=== PATIENT | female | born 1940 | race Caucasian/White ===

== ENCOUNTER 2017-01-06 17:20 | Emergency (ER) | payer MEDICARE, OTHER ==
--- NOTE | ~2017-01-06 | EKG ---
PATIENT: JAMAL BECKFORD UNIT #: [id number] Ventricular Rate: 59 BPM Atrial Rate: 59 BPM P-R Interval: 188 ms QRS Duration: 82 ms Q-T Interval: 486 ms QTC Calculation(Bezet): 481 ms P [place]: 89 degrees Calculated R [place]: 23 degrees Calculated T [place]: 65 degrees Diagnosis Line: Sinus bradycardia Diagnosis Line: Left ventricular hypertrophy with repolarization Diagnosis Line: abnormality Diagnosis Line: Prolonged QT Diagnosis Line: Abnormal ECG Diagnosis Line: When compared with ECG of 14-JUL-2016 19:24, Diagnosis Line: T wave inversion now evident in Lateral leads Diagnosis Line: Confirmed by ROSS MOONEY MD ([id number]) on Diagnosis Line: 01/14/2017 8:28:19 AM INTERPRETING MD: VINICIO HOUSTON
--- NOTE | ~2017-01-06 | CT71 ---
[facility] A Service of [facility] RADIOLOGY TEXT RESULTS PATIENT: JAMAL BECKFORD LOCATION: SED : 42 UNIT #: [id number] AGE: [address]: Porfirio Canchola MD SEX: F ORDER DR: [id number] [address] [address] [id number] E MR#: [id number] Acc #: [id number] NAME: JAMAL BECKFORD : 1940 SEX: F STUDY DATE/TIME: 01/06/2017 17:53 UNIT: SED ROOM: STUDY DESCRIPTION: CT Head Wo Contrast Attending Physician: Porfirio Canchola M.D. Ordering Physician: Noe Rodriguez M.D. Primary Care Physician: Gulshan Espinal M.D. MEDICAL IMAGING REPORT This report is preliminary unless electronic signature is present. EXAM CT head without contrast dated 01/06/2017. COMPARISON CT head without contrast dated 07/14/2016. HISTORY Dizziness, weakness since this morning. Cough and congestion for [address] exam was performed with one or more of the following radiation dose reduction techniques: automatic exposure control, adjustment of mA and/or kV according to patient size, and iterative reconstruction. FINDINGS CT of the head was obtained without contrast in the axial plane as per the protocol. No acute intracranial hemorrhage, space-occupying mass, mass effect or midline shift is seen. Hypodensities are noted in the bilateral insular cortex, periventricular white matter and in the region of the left posterior limb of the internal capsule and the adjacent left thalamus and basal ganglia. It is new since prior study from last year. It does not have any significant edema, mass effect. It could be better seen on the current study due to difference in slice selection or could be truly new. It is however chronic-appearing. No acute intracranial hemorrhage, hydrocephalus or midline shift is seen. Calcifications are noted in the bilateral globus palatine, particularly in the left and in the vessels of the [facility] [place]. There is nodular mild to moderate mucosal thickening in the right sphenoid sinus causing at least partial obstruction. Minimal frothiness is in the left sphenoid sinus. Mild S-shaped nasal septal deviation is seen. Mastoid air cells are well-aerated. Severe hypertrophic changes of the right and mild on the STS. [facility] A Service of [facility] RADIOLOGY TEXT RESULTS PATIENT: JAMAL BECKFORD [place] [facility] [place] UNIT #: [id number] AGE: [address]: Porfirio Canchola MD SEX: F ORDER DR: left mandibular condyles are noted associated with the temporomandibular joints. Imaged orbits and the ocular structures are unremarkable. IMPRESSION 1. There are some scattered nonspecific hypodensities in the brain, likely relating to prior insults. It is age indeterminant. If there is suspicion for acute stroke, MRI is more sensitive. 2. Next, no acute intracranial hemorrhage, hydrocephalus, midline shift or space-occupying large mass is seen. 3. Mild to moderate nodular mucosal thickening is in the right maxillary antrum causing at least partial obstruction of the right sphenoethmoid recess. Dictated by... Alberto Almanza M.D. THIS IS AN ELECTRONICALLY VERIFIED REPORT Alberto Almanza M.D. at 01/06/2017 10:58 PM CPR/ea TD: 01/06/2017 21:38 JOB #: [id number] MEDICAL IMAGING REPORT Page 1 of 1
--- NOTE | ~2017-01-06 | CR72 ---
[facility] A Service of [facility] RADIOLOGY TEXT RESULTS PATIENT: JAMAL BECKFORD LOCATION: SED : 42 UNIT #: [id number] AGE: [address]: Porfirio Canchola MD SEX: F ORDER DR: [id number] [place] [id number] E MR#: [id number] Acc #: [id number] NAME: JAMAL BECKFORD : 1940 SEX: F STUDY DATE/TIME: 01/06/2017 UNIT: SED ROOM: STUDY DESCRIPTION: CR Chest Single View Portable Attending Physician: Porfirio Canchola M.D. Ordering Physician: Noe Rodriguez M.D. Primary Care Physician: Gulshan Espinal M.D. MEDICAL IMAGING REPORT This report is preliminary unless electronic signature is present. EXAM Chest portable 01/06/2017 17:49 hours HISTORY A 76-year-old woman with dizziness and weakness since this morning. Cough and congestion for 11 months. COMPARISON 07/14/2016 FINDINGS Portable upright chest demonstrates stable cardiomegaly and tortuous aorta. The lungs are well expanded. There is linear perihilar and suprahilar density similar to prior study likely chronic. No definite acute pulmonary density or pleural effusion. No pneumothorax. IMPRESSION 1. Stable cardiomegaly and tortuous aorta. 2. Stable perihilar linear densities likely scarring. No definite acute pulmonary or pleural finding. Dictated by... Henrietta Holcomb M.D. THIS IS AN ELECTRONICALLY VERIFIED REPORT Henrietta Hlocomb M.D. at 01/07/2017 9:33 AM LAWSON/finn TD: 01/06/2017 21:11 JOB #: [id number] [facility] A Service [facility] RADIOLOGY TEXT RESULTS PATIENT: JAMAL BECKFORD LOCATION: SED : 42 UNIT #: [id number] AGE: [address]: Porfirio Canchola MD SEX: F ORDER DR: MEDICAL IMAGING REPORT Page 1 of 1
[~2017-01-06 17:20] MED LIST: ALBUTEROL20 ml INH; AMOXICILLIN PO; ASPIRIN EC81 M1 PO; ASPIRIN PO; ATENOLOL PO; ATIVAN PO; ATIVAN0.5 MG PO; BENZONATATE PO; CALCIUM + VIT1 EACH PO; CIPRO PO; DARVOCET-N 1001 TAB PO; DELTASONE20 MG PO; DIAZEPAM PO; DITROPAN5 MG PO; FLEXERIL PO; FOLIC ACID PO; FOSAMAX70 MG PO; GLUCOSAMINE PO; HYDROMET SYRUP480 ML PO; IMDUR PO; IMDUR-ER30 M1 PO; LEVAQUIN; LEVAQUIN PO; LISINOPRIL10 MG PO; LORAZEPAM1 MG PO; LORTAB 7.51 TAB 7.5/ PO; MACROBID100 M1 PO; MAGIC MOUTHWASH PO; MOBIC PO; MULTI VITAMIN1 EACH PO; NEURONTIN600 MG PO; NORVASC PO; OXYCODONE HCL5 MG PO; PRILOSEC; PRILOSEC PO; PRILOSEC40 MG PO; RITUXAN INJ; TENORMIN50 MG PO; ULTRAM PO; XALATAN OP; XARELTO20 MG PO; ZESTRIL5 MG PO; ZOCOR PO; ZOCOR20 MG PO; ZOFRAN ODT4 MG/UDTAB SL
[2017-01-06 18:39] LABS: POC - CKMB <1.0 ng/mL (0.0-7.9); POC - TROPONIN <0.05 ng/mL (<=0.05)
[2017-01-06 18:42] LABS: BASOPHIL% 0.7 % (0-2.5); EOSINOPHIL# 0.7 X10e3 (0-0.7); EOSINOPHIL% 12.4 % (0.0-7.0); HEMATOCRIT 31.1 % (35.0-45.0); LYMPHOCYTE# 1.5 X10e3 (1.0-3.5); LYMPHOCYTE% 28.3 % (17.0-45.0); MEAN CELL VOLUME 87.5 FL (83-96); MEAN CORPUSCULAR HEMOGLOBIN 28.1 PG (28-34); MEAN CORPUSCULAR HGB CONC 32.2 g/dL (30-36); MONOCYTE# 0.2 X10e3 (0-1.0); MONOCYTE% 2.8 % (3.0-12.0); NEUTROPHIL% 55.8 % (40-75); PLATELET COUNT 316 X10e3 (140-420); RED BLOOD COUNT 3.56 X10e (3.90-5.30); RED CELL DISTRIBUTION WIDTH 16.7 % (11.0-15.5); WHITE BLOOD COUNT 5.5 X10e3 (4.0-10.5)
[2017-01-06 18:43] LABS: DIFF IND NO
[2017-01-06 19:00] LABS: ALBUMIN SERUM 2.8 g/dL (3.5-5.0); BILIRUBIN, DIRECT 0.1 mg/dL (0.0-0.2); BILIRUBIN,INDIRECT 0.2 mg/dL (0.0-0.9); BILIRUBIN,TOTAL 0.3 mg/dL (0.2-2.0); BUN/CREATININE RATIO 15.33; CREATININE SERUM 1.5 mg/dL (0.6-1.4); GLOM FILT RATE Estimated 33.7 mL/min (>60); POTASSIUM 4.3 mmol/L (3.5-5.1); PROTEIN TOTAL SERUM 6.9 g/dL (6.0-8.3)
[2017-01-06 19:31] LABS: URINE SOURCE CLEAN CATCH
[2017-01-06 19:33] LABS: URINE APPEARANCE HAZY; URINE BILIRUBIN NEG (NEG); URINE BLOOD NEG (NEG); URINE COLOR YELLOW; URINE GLUCOSE NEG (NORM); URINE KETONE NEG (NEG); URINE LEUKOCYTE ESTERASE 2+ (NEG); URINE NITRATE NEG (NEG); URINE PROTEIN NEG (NEG); URINE SPECIFIC GRAVITY 1.025 (1.003-1.035)
[2017-01-06 19:34] LABS: MICRO INDICATED? YES
[2017-01-06 19:35] LABS: CULTURE INDICATED? YES; URINE BACTERIA 1+ (NEG); URINE MUCUS PRESENT; URINE RBC 0-2 /[HPF] (0-2); URINE SQUAMOUS EPITHELIAL CELL FEW /[HPF]
== END 2017-01-07 01:34 ==
LOC: SED 17:20
PROVIDERS: Emergency Medicine
DX: R53.1 Weakness (principal); R42 Dizziness and giddiness; N39.0 Urinary tract infection, site not specified; J18.9 Pneumonia, unspecified organism; E78.5 Hyperlipidemia, unspecified; I10 Essential (primary) hypertension; Y95 Nosocomial condition
CPT/HCPCS: 36415; 70450; 71010; 80048; 80076; 81003; 82553; 82947; 83605; 84484; 85025; 87040; 87086; 93005; 96374; 99285; J0696